=== PATIENT | female | born 1945 | race Two or more races ===

== ENCOUNTER 2025-02-10 15:02 | Emergency (ER) | payer MEDICAID, SELFPAY ==
[2025-02-10 15:23] VITALS: BP 162/80; PULSE 65; RESP 20; TEMP 36.6; O2SAT 97
--- NOTE | 2025-02-10 15:25 | XR_ITS ---
EXAMINATION: PA lateral chest 2 views TECHNIQUE: Upright PA lateral chest 2 views Date and time: February 10, 2025, 1619 hours INDICATIONS: Chest pain today FINDINGS: Mild enlargement left ventricle Benign lobulation right hemidiaphragm. Prominent central pulmonary arteries. Mild vascular congestion. No lobar pneumonia or pulmonary edema Moderate osteopenia IMPRESSION: Mild enlargement left ventricle Suspicious for pulmonary artery hypertension Mild vascular congestion No lobar pneumonia or pulmonary edema
--- NOTE | 2025-02-10 15:25 | EKG_ITS ---
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
[2025-02-10] MEDS: ACETAMINOPHEN w/COD 300-30 TABLET 1 TAB PO (15:46)
[2025-02-10 16:53] LABS: Basophils # (Auto) 0.0 Thou/mm3 (0.0-0.2); Basophils % (Auto) 1 % (0-2.5); Eosinophils # (Auto) 0.3 Thou/mm3 (0.0-0.5); Eosinophils % (Auto) 4 % (0-10); Hematocrit 36.4 % (36.0-46.0); Hemoglobin 11.9 g/dL (12.0-16.0); Immature Granulocytes Auto 0.02 Thou/mm3 (0.00-0.00); Lymphocytes # (Auto) 2.1 Thou/mm3 (1.0-4.8); Lymphocytes % (Auto) 31 % (10-50); Mean Corpuscular HGB Conc 32.7 g/dl (31.0-37.0); Mean Corpuscular Hemoglobin 28.8 pg (25.0-35.0); Mean Corpuscular Volume 88 fL (80-100); Monocytes # (Auto) 0.5 Thou/mm3 (0.0-0.8); Monocytes % (Auto) 8 % (0-12); Neutrophils # (Auto) 3.8 Thou/mm3 (1.8-7.7); Neutrophils % (Auto) 57 % (37-80); Nucleated Red Blood Cell # 0.00 Thou/mm3 (0.00-0.00); Nucleated Red Blood Cell % 0 /100 WBC (0); Platelet Count 219 Thou/mm3 (140-440); RDW Standard Deviation 41.8 fL (36.4-46.3); Red Blood Count 4.13 Miln/mm3 (4.00-5.20); White Blood Count 6.7 Thou/mm3 (3.6-11.0)
[2025-02-10 17:38] LABS: Alanine Aminotransferase 15 U/L (10-49); Albumin, Serum 4.6 gm/dL (3.4-4.8); Albumin/Globulin Ratio 1.9 (1.2-2.2); Alkaline Phosphatase 91 U/L (46-116); Anion Gap 8 (7-16); Aspartate Amino Transferase 24 U/L (0-34); BUN/Creatinine Ratio 34 Ratio (12-20); Bilirubin,Total 0.4 mg/dL (0.3-1.2); Blood Urea Nitrogen 17 mg/dL (9-23); Calcium 9.1 mg/dL (8.3-10.6); Calcium (Corrected) 9.1 mg/dL (8.5-10.1); Carbon Dioxide 27.4 mMol/L (20.0-31.0); Chloride 111 mMol/L (98-107); Creatinine (Component) 0.5 mg/dL (0.6-1.3); Globulin 2.4 gm/dL (2.3-3.5); Glucose 115 mg/dL (74-106); Osmolality,Calculated 293 (275-295); Potassium 3.7 mMol/L (3.4-5.1); Sodium 146 mMol/L (136-145); Total Protein 7.0 gm/dL (5.7-8.2); Troponin I < 0.020 ng/mL (0.0-0.045); eGFR > 60 See Note
[2025-02-10 17:42] LABS: B-Type Natriuretic Peptide 135 pg/mL (0-100)
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
[2025-02-10] MEDS: IBUPROFEN TAB 400 MG TABLET PO (19:50)
[2025-02-10] MEDS: MORPHINE SULF INJ 4 MG/ML VIAL IM (19:51)
--- NOTE | 2025-02-10 21:40 | PC.NURSE ---
2140 NA FOR DC AT THIS TIME.
== END 2025-02-10 21:57 | disposition home or self-care (01) ==
PROVIDERS: Nurse Practitioner Primary Care; Emergency Provider Emergency Medicine
DX: R07.89 Other chest pain (principal)
CPT/HCPCS: 36415; 71046; 80053; 83880; 84484; 85025; 93005; 96372; 99283; J2270; A9270